=== PATIENT | male | born 1985 | race Caucasian/White ===

== ENCOUNTER → 2019-04-24 06:13 | Outpatient (CLI) | payer BC, SELFPAY ==
[2019-03-08 16:19] VITALS: BMI 38.7
--- NOTE | 2019-04-24 11:15 | STRESSREP ---
Stress Test Report Date: 04-24-2019 Procedure: Exercise tolerance test/imaging study Indications: Shortness of breath/dyspnea on exertion Consent: Per the patient Procedure: The patient exercised on a Huan protocol for 12 minutes completing Stage IV achieving a peak heart rate of 157 bpm (84 % predicted maximal heart rate) with a peak blood pressure 170/82 mmHg and a peak MET capacity of 13 METs. The baseline ECG demonstrated normal sinus rhythm. The peak exercise ECG demonstrated no obvious ECG changes. There was a rare PVC during exercise. The functional capacity was considered good. There was no complaint of chest discomfort during exercise or recovery0. The examination was discontinued secondary to dyspnea. Impression: 1. Technically adequate (percent predicted maximal heart rate greater than 85%) exercise tolerance test 2. Peak exercise ECG with no obvious ECG changes 3. There was a rare PVC during exercise 4. Nuclear images pending Myocardial perfusion imaging study: Technique: The patient was injected with 14.8 mCi of technetium 99m Cardiolite and subsequently rest SPECT Cardiolite nuclear imaging was obtained in the horizontal long, vertical long, and short axis views. The patient exercised on a Huan protocol for 12 minutes completing Stage IV achieving a peak heart rate of 157 bpm (84 % predicted maximal heart rate) with a peak blood pressure 170/82 mmHg and a peak MET capacity of 13 METs. The patient was injected with 44.0 mCi of technetium 99m Cardiolite and subsequently stress SPECT Cardiolite nuclear imaging was obtained in the horizontal long, vertical long, and short axis views. A gated Cardiolite study at peak stress was obtained. Interpretation: Rest and stress SPECT Cardiolite nuclear imaging status post realignment, normalization, and attenuation correction, demonstrates small area of subtle diminished tracer uptake near the apical segments without significant change between rest and stress appearing compatible with physiologic apical thinning. There is end systolic thickening and brightening. The gated Cardiolite study demonstrates myocardial thickening and inward wall motion. The reported LVEF is 76 %. Impression: 1. Rest and stress SPECT Cardiolite nuclear imaging demonstrate a small area of subtle diminished tracer uptake near the apical segments without significant change between rest and stress appearing compatible with physiologic apical thinning with no myocardial perfusion changes considered diagnostic for associated stress-induced myocardial ischemia. 2. The gated Cardiolite study reports an LVEF of 76 %. This note was generated with [employer] software. It may contain incorrect words, spelling, and punctuation that were not noted in checking the note before signing.
== END ==
PROVIDERS: Family Provider Family Medicine; PCP Family Medicine; Referring Provider Family Medicine; Visit Provider Family Medicine
DX: R06.09 Other forms of dyspnea (principal)
CPT/HCPCS: 78452; 93017; A9500; A4216